=== PATIENT | female | born 1955 | race Caucasian/White ===

== ENCOUNTER 2016-10-08 07:28 | Emergency (ER) | payer BC, OTHER ==
[2016-10-08 07:37] VITALS: BP 157/83
--- NOTE | 2016-10-08 08:29 | RAD ---
INDICATION: Lateral foot and ankle pain after a fall down stairs COMPARISON: None. TECHNIQUE: 3 views of the left ankle and 3 views of the left foot were obtained. FINDINGS: The well corticated bones exhibit normal alignment. Joint spaces appear maintained. Degenerative changes include joint space narrowing and sclerosis of the articulating surfaces of the talonavicular joint. On the lateral view of the ankle there is marginal osteophyte formation extending over the posterior aspect of the talocalcaneal joint. No acute fracture is seen. IMPRESSION: DEGENERATIVE CHANGES DESCRIBED ABOVE WITHOUT RADIOGRAPHICALLY APPARENT FRACTURE OR DISLOCATION. If the patient's symptoms persist, follow-up imaging is recommended.
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
== END 2016-10-08 08:49 | disposition home or self-care (01) ==
LOC: UCEAST 07:28
DX: S93.402A Sprain of unspecified ligament of left ankle, initial encounter (principal); W19.XXXA Unspecified fall, initial encounter
CPT/HCPCS: 99211; G0463

== ENCOUNTER 2017-09-13 19:06 | Emergency (ER) | payer BC ==
[2017-09-13] MEDS ORDERED: Al Hydrox/Mg Hydrox/Simet LIQ* 30 ML UDC PO ONE (19:39)
[2017-09-13] MEDS ORDERED: Pantoprazole IV* 40 MG IV ONE (19:39)
[2017-09-13] MEDS ORDERED: Lidocaine 2% VISCOUS* 15 ML UDC PO ONE (19:39)
[2017-09-13] MEDS ORDERED: Metoclopramide IV* 5 MG/ML 2 ML VIAL IV SLOW PU ONE (19:40)
[2017-09-13 19:53] LABS: ABS Basophils 0.1 10^3/ul (0-0.2); ABS Eosinophils 0.4 10^3/ul (0-0.6); ABS Lymphocytes 1.9 10^3/ul (1.0-4.8); ABS Monocytes 0.4 10^3/ul (0-0.8); ABS Neutrophils 4.9 10^3/ul (1.5-7.7); ABS Nucleated RBC 0 10^3/ul; Eosinophil % 4.9 % (0-6); Hematocrit 40 % (35-47); Hemoglobin 13.6 g/dl (12.0-16.0); Mean Corpuscular HGB Conc 34 g/dl (31-36); Mean Corpuscular Hemoglobin 30 pg (27-31); Mean Corpuscular Volume 89 fL (80-97); Mean Platelet Volume 7.1 um3 (7.4-10.4); Nucleated Red Blood Cells % 0; Platelet Count 300 10^3/ul (150-450); Red Blood Count 4.51 10^6/ul (4.0-5.4); Red Cell Distribution Width 14 % (10.5-15); White Blood Count 7.7 10^3/ul (3.5-10.8)
--- NOTE | 2017-09-13 20:00 | RAD ---
Indication: Chest pain. History of asthma. Comparison: February 10, 2014 Technique: Upright AP 1952 hours Report: Elevated lung volumes and both diffuse minimal prominence of the interstitial markings and patchy rarefaction of the mid to upper lung zone interstitial markings. No focal pulmonary lesion, compelling alveolar consolidation, pleural effusion, pneumothorax. The heart, pulmonary vasculature, and mediastinal contours are unremarkable. IMPRESSION: Stigmata of obstructive lung disease. No acute pulmonary or cardiac process evident.
[2017-09-13 20:09] LABS: INR 1.01 (0.77-1.02)
[2017-09-13 20:18] LABS: EGFR Non-African American 86.8 (>60)
[2017-09-14 00:38] VITALS: BP 188/102
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
== END 2017-09-14 00:36 | disposition home or self-care (01) ==
LOC: ED 19:06
DX: R07.89 Other chest pain (principal); K21.9 Gastro-esophageal reflux disease without esophagitis; R11.0 Nausea; J45.909 Unspecified asthma, uncomplicated; Z87.440 Personal history of urinary (tract) infections; F41.9 Anxiety disorder, unspecified; F32.9 Major depressive disorder, single episode, unspecified; Z90.49 Acquired absence of other specified parts of digestive tract
CPT/HCPCS: 36415; 71045; 80053; 82150; 83605; 83690; 83735; 84484; 85025; 85610; 85730; 93005; 96374; 96375; 99284; A9270-GY; J2765

== ENCOUNTER 2019-05-18 12:24 | Emergency (ER) | payer BC ==
[2019-05-18 12:38] VITALS: BP 162/83
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
== END 2019-05-18 14:00 | disposition home or self-care (01) ==
LOC: UCEAST 12:24
DX: S30.0XXA Contusion of lower back and pelvis, initial encounter (principal); I10 Essential (primary) hypertension; J45.909 Unspecified asthma, uncomplicated; M81.0 Age-related osteoporosis without current pathological fracture; Z96.641 Presence of right artificial hip joint; Z79.899 Other long term (current) drug therapy; W00.9XXA Unspecified fall due to ice and snow, initial encounter; Y92.481 Parking lot as the place of occurrence of the external cause
CPT/HCPCS: 72110; 73523; 99211; G0463

== ENCOUNTER 2020-01-22 22:26 | Inpatient (IN) ==
[2020-01-22 23:39] LABS: ABS Basophils 0.1 10^3/ul (0-0.2); ABS Eosinophils 0.2 10^3/ul (0-0.6); ABS Lymphocytes 1.9 10^3/ul (1.0-4.8); ABS Monocytes 0.7 10^3/ul (0-0.8); ABS Neutrophils 7.4 10^3/ul (1.5-7.7); Eosinophil % 2.3 %; Hematocrit 36 % (35-47); Hemoglobin 12.4 g/dL (12.0-16.0); Lymphocyte % 18.8 %; Mean Corpuscular HGB Conc 35 g/dL (31-36); Mean Corpuscular Hemoglobin 31 pg (27-31); Mean Corpuscular Volume 89 fL (80-97); Mean Platelet Volume 6.5 fL (7.4-10.4); Platelet Count 345 10^3/uL (150-450); Red Blood Count 4.03 10^6 /uL (3.70-4.87); Red Cell Distribution Width 13 % (10-15); White Blood Count 10.3 10^3/uL (3.5-10.8)
[2020-01-22 23:55] LABS: ALT 20 U/L (7-52); AST 20 U/L (13-39); Acetaminophen < 15 mcg/mL; Albumin 4.4 g/dL (3.2-5.2); Albumin/Globulin Ratio 1.8 (1-3); Alcohol, S < 10 mg/dL (<10); Alkaline Phosphatase 53 U/L (34-104); Anion Gap 9 mmol/L (2-11); BUN/Creatinine Ratio 15.5 (8-20); Blood Urea Nitrogen 9 mg/dL (6-24); CO2 Carbon Dioxide 28 mmol/L (22-32); Calcium 10.1 mg/dL (8.6-10.3); Chloride 98 mmol/L (101-111); EGFR African American 127.5 (>60); EGFR Non-African American 105.3 (>60); Globulin 2.4 g/dL (2-4); Glucose 101 mg/dL (70-100); Salicylate < 2.50 mg/dL (<30); Sodium 135 mmol/L (135-145); Total Protein 6.8 g/dL (6.4-8.9)
[2020-01-23 00:10] LABS: TSH Ultra Thyroid Stim Horm 0.83 mcIU/mL (0.34-5.60)
[2020-01-23] MEDS ORDERED: Potassium Chlor 20 meq TAB.ER PO ONE (01:49)
[2020-01-23] MEDS ORDERED: Al Hydrox/Mg Hydrox/Simet LIQ 30 ML UDC PO PRN (10:23)
[2020-01-23] MEDS ORDERED: Mometasone 110 MCG MDI INH PRN (11:03)
[2020-01-23] MEDS: Mometasone 110 MCG MDI INH SCH (18:40)
[2020-01-24 08:02] LABS: HDL Cholesterol 61.6 mg/dL
[2020-01-24] MEDS: Mometasone 110 MCG MDI INH SCH (10:26)
[2020-01-24] MEDS ORDERED: Albuterol HFA INHALER 8 gm MDI INH PRN (11:48)
[2020-01-25] MEDS: Mometasone 110 MCG MDI INH SCH (10:27)
[2020-01-26] MEDS: Mometasone 110 MCG MDI INH SCH (09:16)
[2020-01-27] MEDS: Mometasone 110 MCG MDI INH SCH (08:56)
[2020-01-28] MEDS: Mometasone 110 MCG MDI INH SCH (09:20)
[2020-01-29] MEDS: Mometasone 110 MCG MDI INH SCH (09:11)
[2020-01-29 15:46] LABS: Urine Appearance Cloudy; Urine Bilirubin Negative (Negative); Urine Blood 1+ (Negative); Urine Color Yellow; Urine Glucose Negative (Negative); Urine Ketones Negative (Negative); Urine Nitrite Negative (Negative); Urine Protein Negative (Negative); Urine Specific Gravity 1.013 (1.010-1.030); Urine Urobilinogen Negative (Negative)
[2020-01-29 15:59] LABS: Urine Bacteria 1+ (Absent); Urine Red Blood Cell 2+(6-10/hpf) (Absent); Urine Squamous Epithelial Cell Present (Absent); Urine White Blood Cell 1+(6-10/hpf) (Absent)
[2020-01-29 16:09] LABS: Urine Benzodiazepine Screen None Detected (None Detect); Urine Cannabinoids Screen None Detected (None Detect); Urine Opiates Screen None Detected (None Detect)
[2020-01-30] MEDS: Mometasone 110 MCG MDI INH SCH (08:46)
[2020-01-30] MEDS: Fluticasone NASAL SPRAY 50MCG 16 gm SPRAY BTL BOTH NARES SCH (11:05)
[2020-01-31] MEDS: Fluticasone NASAL SPRAY 50MCG 16 gm SPRAY BTL BOTH NARES SCH (10:04)
[2020-01-31] MEDS: Mometasone 110 MCG MDI INH SCH (10:05)
[2020-02-01] MEDS: Fluticasone NASAL SPRAY 50MCG 16 gm SPRAY BTL BOTH NARES SCH (09:29)
[2020-02-01] MEDS: Mometasone 110 MCG MDI INH SCH (09:29)
[2020-02-01 10:09] VITALS: BP 129/74
== END 2020-02-01 15:00 | disposition home or self-care (01) | DRG 751 ==
LOC: ED 22:26 → BSU 01-23 10:50
PROVIDERS: ADMIT Psychiatry & Neurology Psychiatry; ATTEND Psychiatry & Neurology Psychiatry